=== PATIENT | male | born 1940 | race Caucasian/White ===

== ENCOUNTER 2017-08-03 11:59 | Inpatient (IN) | payer MEDICARE, BC ==
[~2017-08-03] VITALS: Ht 177.8 cm; Wt 79.2 kg
[2017-08-03] MEDS ORDERED: Lidocaine 1% Plain 30 ml INJ ONE (12:15)
[2017-08-03] MEDS ORDERED: Acetaminophen 500mg (ES) tab ORAL ONE (12:15)
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
[2017-08-03 12:43] LABS: BASOPHILS % (AUTO) 2.2 % (0.0-2.0); EOSINOPHILS % (AUTO) 4.6 % (0.0-3.0); HEMATOCRIT 33.2 % (42.0-52.0); HEMOGLOBIN 11.1 G/DL (14.2-18.0); MEAN CORPUSCULAR VOLUME 92 FL (80-99); MONOCYTES % (AUTO) 12.1 % (1.0-10.0); NEUTROPHILS % (AUTO) 49.1 % (45.0-75.0); PLATELET COUNT 248 K/UL (150-450); RED CELL DISTRIBUTION WIDTH 12.5 % (11.6-14.8); WHITE BLOOD COUNT 8.5 K/UL (4.8-10.8)
[2017-08-03 12:58] LABS: ANION GAP 18 mmol/L (5-15); BLOOD UREA NITROGEN 24 mg/dL (7-18); CALCIUM 9.6 MG/DL (8.5-10.1); CARBON DIOXIDE 19 MMOL/L (21-32); CHLORIDE 100 MMOL/L (98-107); CREATININE 1.4 MG/DL (0.55-1.30); POTASSIUM 3.5 MMOL/L (3.5-5.1); SODIUM 137 MMOL/L (136-145)
[2017-08-03 13:03] LABS: ALANINE AMINOTRANSFERASE 16 U/L (12-78); ALBUMIN 3.6 G/DL (3.4-5.0); ALBUMIN/GLOBULIN RATIO 0.8 (1.0-2.7); ALKALINE PHOSPHATASE 53 U/L (46-116); ASPARTATE AMINO TRANSFERASE 19 U/L (15-37); BILIRUBIN,TOTAL 0.4 MG/DL (0.2-1.0)
[2017-08-03 13:40] VITALS: BP 119/63
[2017-08-03 13:49] LABS: INR 0.9 (0.9-1.1)
[2017-08-03 14:27] VITALS: BP 119/80
[2017-08-03] MEDS ORDERED: ceFAZolin 1gm/50ml Premix 50 ML IV ONE (14:30)
[2017-08-03 15:33] VITALS: BP 125/68
[2017-08-03] MEDS ORDERED: Norco 5mg/325mg tab ORAL PRN ×2 (16:15)
[2017-08-03] MEDS ORDERED: ALLOPURINOL100 M1 ORAL (16:22)
[2017-08-03] MEDS ORDERED: OCUVITE EYE +1 EACH PO (16:22)
[2017-08-03] MEDS ORDERED: ZYRTEC10 MG ORAL (16:22)
[2017-08-03] MEDS ORDERED: MOM30 ML ORAL (16:22)
[2017-08-03] MEDS ORDERED: VITAMIN D-32000 UNI2 PO (16:22)
[2017-08-03] MEDS ORDERED: FOLIC ACID1 MG ORAL (16:22)
[2017-08-03] MEDS ORDERED: ACETAMINOPHEN325 M1 ORAL (16:22)
[2017-08-03] MEDS ORDERED: HYDROCHLOROTH12.5 MG ORAL (16:22)
[2017-08-03] MEDS ORDERED: XALATAN2.5 ML BOTH EYES (16:22)
[2017-08-03] MEDS ORDERED: NEURONTIN300 MG ORAL (16:22)
[2017-08-03] MEDS ORDERED: NORVASC10 MG ORAL (16:22)
[2017-08-03] MEDS ORDERED: HYDROCORTISONE20 MG PO (16:22)
[2017-08-03] MEDS ORDERED: MULTIVITAMINS1 EAC2 ORAL (16:22)
[2017-08-03] MEDS ORDERED: Milk of Magnesia 30ml Ud ORAL PRN (16:45)
[2017-08-03] MEDS ORDERED: BRIMONIDINE TART5 ML BOTH EYES (18:51)
[2017-08-03 20:00] VITALS: BP 121/72
[2017-08-03] MEDS: Latanoprost 0.005% Opth 2.5ml Soln BOTH EYES SCH (20:19)
[2017-08-03] MEDS: Brimonidine 0.2% Opth Sol BOTH EYES SCH (20:39)
[2017-08-04] VITALS: BP 136/78
[2017-08-04 04:00] VITALS: BP 121/72
--- NOTE | 2017-08-04 07:42 | Pre-Procedure Note/Attestation ---
Pre-Procedure Note/Attestation Complete Prior to Procedure Planned Procedure: right Procedure Narrative: OPEN REDUCTION INTERNAL FIXATION , RIGHT HALLUX DISTAL PHALANX POSSIBLE RIGHT HALLUX INTERPHALANGEAL JOINT FUSION Indications for Procedure Pre-Operative Diagnosis: OPEN FRACTURE, RIGHT HALLUX, DISTAL PHALANX PERIPHERAL NEUROPATHY, RIGHT LOWER EXTREMITY Attestation I attest that I discussed the nature of the procedure; its benefits; risks and complications; and alternatives (and the risks and benefits of such alternatives ), prior to the procedure, with the patient (or the patient's legal leather goods sales representative). I attest that, if there was a reasonable possibility of needing a blood transfusion, the patient (or the patient's legal leather goods sales representative) was given the [place] Department [employer] standardized written summary, pursuant to the Bert [place] Blood Safety Act ([place] Health and Safety Code # 1645, as amended). I attest that I re-evaluated the patient just prior to the surgery and that there has been no change in the patient's H&P, except as documented below: YAYA NAQVI M.D. August 04, 2017 07:42
--- NOTE | 2017-08-04 07:51 | History & Physical ---
History and Physical History & Physicial right toe fracture/laceration medically healthy denies cardiopulmonary disease PLAN full note to follow medically stable to proceed with local anesthesia and repair Allan Barajas MD August 04, 2017 07:51
[2017-08-04] MEDS ORDERED: Betadine 10% Oint 30gm TOPIC ONE (07:53)
[2017-08-04] MEDS ORDERED: Bupivacaine 0.25% Inj 30ml INJ ONE (07:53)
[2017-08-04] MEDS ORDERED: Lidocaine 1% Plain 30 ml INJ ONE (07:53)
[2017-08-04] MEDS ORDERED: Bacitracin Oint 15gm Tube TOPIC ONE (07:53)
[2017-08-04] MEDS ORDERED: Bacitracin 50000 Units Vial ONE (07:53)
[2017-08-04] MEDS ORDERED: NS Irrig 1000ml IRRIG ONE (08:30)
--- NOTE | 2017-08-04 09:47 | Diagnostic Imaging Report ---
Indication: Reason For Exam: PAIN Technique: Right foot, 3 views Comparison: None. Findings: There is fracture of the first distal phalanx. Laceration appears to be present on the first toe. There is narrowing of the first metatarsal phalangeal joint. Vascular calcification is present. Impression: Fracture of the first distal phalanx with probable soft tissue laceration. Degenerative change of the first metatarsal phalangeal joint. Atherosclerotic change.
--- NOTE | 2017-08-04 09:47 | Operative Note - PDOC ---
Operative Note Operative Note Date of Operation/Procedure: August 04, 2017 Chief Complaint: RIGHT BIG TOE FRACTURE OF DISTAL PHALANX, OPEN Pre-op Diagnosis: OPEN FRACTURE, RIGHT HALLUX, DISTAL PHALANX PERIPHERAL NEUROPATHY, RIGHT LOWER EXTREMITY Procedure: OPEN REDUCTION INTERNAL FIXATION RIGHT HALLUX DISTAL PHALANX LACERATION REPAIR, DEEP, RIGHT HALLUX Post-op Diagnosis: same as pre-op Surgeon: YAYA NAQVI DPM [employer] Access Coordinator: NONE Additional Surgeons: NONE Anesthesiologist: NONE, LOCAL ONLY Anesthesia: local Specimen: none Complications: none Condition: stable Fluids: PER CHART Estimated Blood Loss: minimal - 50CC Drains: none Tourniquet time: 53 Implant(s) used?: No Indications for Procedure OPEN FRACTURE RIGHT HALLUX Description of Procedure SEE OP REPORT DICTATED 08/04/17 935AM YAYA NAQVI M.D. August 04, 2017 09:47
--- NOTE | 2017-08-04 10:16 | Diagnostic Imaging Report ---
Indication: Reason For Exam: PAIN Technique: Intraoperative views of the right third toe, 2 views provided. Fluoroscopy time: 29.4 seconds DAP: 0.91425 mGym2 Comparison: None. Findings: Examination demonstrates pin reduction of a distal phalangeal fracture of the first toe. Impression: Reduction of distal phalangeal fracture of the first toe.
--- NOTE | 2017-08-04 10:18 | Diagnostic Imaging Report ---
Indication: Pain Technique: XRAY Chest 1v Comparison: 01/27/2007. Findings: The patient has taken a poor inspiration. The cardiomediastinal silhouette is normal. The lungs are clear. There is no evidence of pleural fluid. The bony structures are unremarkable. Impression: Poor inspiratory chest. Otherwise grossly negative.
[2017-08-04] MEDS: Latanoprost 0.005% Opth 2.5ml Soln BOTH EYES SCH ×2 (10:19→22:27)
[2017-08-04] MEDS: Allopurinol 100mg Tab ORAL SCH (10:20)
[2017-08-04] MEDS: hydroCHLOROthiazide 12.5mg TAB ORAL SCH (10:20)
[2017-08-04] MEDS: Vitamin D 1000 IU Tab ORAL SCH (10:25)
[2017-08-04] MEDS: Brimonidine 0.2% Opth Sol BOTH EYES SCH ×2 (10:25→18:05)
[2017-08-04 12:00] VITALS: BP 114/70
--- NOTE | 2017-08-04 12:00 | History and Physical Report ---
DATE OF ADMISSION: 08/03/2017 REASON FOR ADMISSION: Toe fracture. HISTORY OF PRESENT ILLNESS: The patient is a 76-year-old male who presented through the emergency room. The patient was brought in by ambulance for laceration of the big toe. The patient apparently stubbed his toe and began bleeding profusely. The patient denies any significant history of cardiopulmonary disease. Denies any history of diabetes. Denies loss of consciousness or syncope. The patient apparently has had some alcohol earlier that day and the patient does have a caregiver. Currently, the patient is comfortable and plans to have open reduction and internal fixation of the fracture. PAST MEDICAL HISTORY: The patient denies all medical problems. The patient, however, does have history of hypertension, does have history of glaucoma, history of hay fever, possible neuropathy, and intermittent dermatitis. FAMILY HISTORY: Otherwise noncontributory to the above. SOCIAL HISTORY: The patient lives with a caregiver. Nonsmoker. Nondrinker. REVIEW OF SYSTEMS: All 10 points reviewed and the patient denies all other complaints. PHYSICAL EXAMINATION: GENERAL: A well-developed male, comfortable. VITAL SIGNS: Pulse 101, blood pressure 136/78, O2 saturations 95% on room air, and temperature 97.5. HEENT: Negative. Oropharynx moist. NECK: Supple. EXTREMITIES: Grossly intact. LUNGS: Fairly clear. Symmetric. No rhonchi or wheezes. CARDIAC: Normal S1, S2. Regular rate and rhythm without audible murmurs, rubs or gallops. ABDOMEN: Soft, nontender, nondistended. EXTREMITIES: No cyanosis, clubbing, or edema. Right foot big toe, the patient has a laceration with some evidence of old bleeding and some deformity noted. LABORATORY AND DIAGNOSTIC DATA: The patient's laboratory data otherwise reviewed. Chest x-ray negative. EKG without any acute changes. X-ray shows the distal phalanx right big toe fracture. Laboratory data reviewed. Hemoglobin 9.1, otherwise CBC negative. Chemistry, BUN 24 and creatinine 1.4. Albumin normal. IMPRESSION: 1. Status post traumatic fracture of right great toe with associated laceration. 2. Evidence of mild metabolic acidosis. 3. Mild renal impairment, possibly chronic renal failure. 4. Mild anemia, possibly due to chronic disease. 5. Evidence of hay fever with mild eosinophilia. 6. Hypertension. RECOMMENDATION: Supportive care. Resume medication. Hold anticoagulation. Proceed with podiatric intervention and monitor postoperatively with plans for discharge to home health. Allan Barajas M.D. DR: MARYILN JOB#: [id number] CC:
--- NOTE | 2017-08-04 15:45 | Operative Note - Dictated ---
DATE OF OPERATION: 08/04/2017 PREOPERATIVE DIAGNOSES: 1. Open fracture of the distal phalanx right hallux. 2. Peripheral neuropathy of the right lower extremity. POSTOPERATIVE DIAGNOSES: 1. Open fracture of the distal phalanx right hallux. 2. Peripheral neuropathy of the right lower extremity. PROCEDURE PERFORMED: Open reduction and internal fixation of the right hallux distal phalanx. ANESTHESIOLOGIST: None. ANESTHESIA: Local with first-ray block with 10 mL of 1:1 mixture of 0.25% Marcaine plain and 1% lidocaine plain. TOURNIQUET TIME: 53 minutes on 250 mmHg, calf tourniquet. SURGEON: Kirit Munoz D.P.M. SIDE GLUER: None. FINDINGS: Complete fracture through the base of the distal phalanx with intact EHL tendon at the insertion of the base of the distal phalanx. DESCRIPTION OF PROCEDURE: The patient was brought to the operating suite and placed in supine position on the operating table. An appropriate time-out was performed identifying the correct patient, procedure, and limb. The right lower extremity was then prepped and draped in the usual sterile fashion. First-ray block was given with a 1:1 mixture of 1% lidocaine pain and 0.25% Marcaine plain. A calf tourniquet was applied prior to the beginning of the case and set up to 250 mmHg for 53 minutes total. I identified the fracture site and we removed some of the hematoma and debrided the bony edges with a Dermal Curette. I searched for any bony debris and a few small bone spicules were identified along the plantar medial aspect and were excised using Dermal Curette. This area was then washed out. I then washed out the wound and the fracture site with one liter of normal saline. At this time, I directed to 0.0045 K-wire in the usual sterile fashion from the distal tip. Prior to this, a stab incision was made at the distal tip of the right hallux. I then used a C-arm to identify that the fracture was adequately reduced through the fracture site and through the hallux IPJ. Once this was performed, the fracture site was again washed out with normal saline and once we got adequate AP and lateral views, I then sutured the subcutaneous tissue with 4-0 Vicryl suture in simple interrupted fashion. I then closed skin using 4-0 Prolene in horizontal and simple fashion. I then applied a Xeroform pin cap on the K-wire and dressed it with 4 x 4 Kerlix and Rasta. This was the completion of the case. DISPOSITION: The patient tolerated local anesthesia and procedure well without any complications. He was transferred back to his room immediately from the operative suite with vital signs stable and vascular status intact. The right foot was noted by immediately hyperemia of digits 1 to 5 upon completion of the case. I will order physical therapy for gait training using a front-wheel walker. We have placed him in a surgical shoe at this time. I advocate wearing this postoperative shoe at all times, even in bed to prevent any catching of the K-wire. I discussed with the patient it is okay for him walk on the heel, so he will be partial protective weightbearing using a front-wheel walker. Once his pain is controlled and he is tolerating the diet, I will have his admitting physician release him home. Outer , which include 4x4 Kerlix and Coban should be changed on 08/07/2017. However, I advocate for the patient to leave the Xeroform intact. He will follow up with me in clinic in one week. Kirit Munoz M.D. DR: BRITTON JOB#: [id number] CC:
[2017-08-04 16:00] VITALS: BP 110/69
[2017-08-04 20:00] VITALS: BP 126/71
[2017-08-05] VITALS: BP 108/63
[2017-08-05 04:00] VITALS: BP 109/60
[2017-08-05 08:00] VITALS: BP 120/69
--- NOTE | 2017-08-05 09:15 | Consultation ---
DATE OF CONSULTATION: 08/03/2017 TIME: 3:30 p.m. due to the neuropathy and plantar flexed he does not remember if he . He does remember that it felt like a carpet. He was taken to the ER at [facility]. They washed up the wound and . After prescription has gone to brain picker the medications. He is not in any pain. Denies any constitutional symptoms. PAST MEDICAL HISTORY: The patient has high blood pressure, gout, heart disease, and gastrointestinal disorders. PAST SURGICAL HISTORY: Tonsillectomy. MEDICATIONS: See the list. PHYSICAL EXAMINATION: VITAL SIGNS: Most recent vitals are temperature 96.6, pulse 77, respiratory rate 20, blood pressure 125/68, and O2 99% on room air. On exam, . The patient denies sensation to the medial and lateral aspects. malodor. There is about 50% laceration, which is still open. There is no horizontal fracture line at the distal the right hallux with a small fracture fragment that goes into the level of the hallux IPJ. LABORATORY DATA: White count 8.5, hemoglobin 11.1, hematocrit 33.2, and platelet count 248,000. ASSESSMENT: 1. Open fracture, right distal phalanx. 2. Peripheral neuropathy of the lower extremity. PLAN: Discussed all risks, benefits, and potential complications of the surgery with a proposed fusion of the hallux IPJ, right big toe physical therapy for nonweightbearing . Kirit Munoz M.D. DR: ZACHARY JOB#: [id number] CC:
[2017-08-05] MEDS: Brimonidine 0.2% Opth Sol BOTH EYES SCH ×2 (10:06→17:20)
[2017-08-05] MEDS: Vitamin D 1000 IU Tab ORAL SCH (10:07)
[2017-08-05] MEDS: hydroCHLOROthiazide 12.5mg TAB ORAL SCH (10:07)
[2017-08-05] MEDS: Allopurinol 100mg Tab ORAL SCH (10:07)
--- NOTE | 2017-08-05 10:13 | General Progress Note ---
Assessment/Plan Assessment/Plan IMPRESSION: 1. Status post traumatic fracture of right great toe with associated laceration. s/p ORIF 2. Evidence of mild metabolic acidosis. 3. Mild renal impairment, possibly chronic renal failure. 4. Mild anemia, possibly due to chronic disease. 5. Evidence of hay fever with mild eosinophilia. 6. Hypertension. PLAN pain rx home health resume meds follow up with podiatry stable for discharge Subjective Allergies: Coded Allergies: No Known Allergies (Verified , 01/28/07) Subjective care noted has some pain D/W podiatry- cleared Objective Last 24 Hour Vital Signs Date Time Temp Pulse Resp B/P (MAP) Pulse Ox O2 Delivery O2 Flow Rate FiO2 08/05/17 04:00 97.2 86 20 109/60 96 Room Air 97.2 08/05/17 04:00 80 08/05/17 00:00 78 08/05/17 00:00 97.5 80 20 108/63 91 Room Air 97.5 08/04/17 20:00 88 08/04/17 20:00 99.2 92 20 126/71 98 Room Air 99.2 08/04/17 16:00 93 08/04/17 16:00 98.3 89 18 110/69 97 Room Air 98.3 08/04/17 12:00 98.7 88 22 114/70 94 Room Air 98.7 08/04/17 12:00 86 08/04/17 10:20 87 121/74 Intake and Output 08/04/17 08/05/17 19:00 07:00 Intake Total 450 ml 150 ml Output Total 300 ml 250 ml Balance 150 ml -100 ml Intake Oral 450 ml 150 ml Output Urine Total 300 ml 250 ml # Voids 5 Height (Feet): 5 Height (Inches): 10.00 Weight (Pounds): 174 Objective GENERAL: A well-developed male, comfortable. HEENT: Negative. Oropharynx moist. NECK: Supple. EXTREMITIES: Grossly intact. LUNGS: Fairly clear. Symmetric. No rhonchi or wheezes. CARDIAC: Normal S1, S2. Regular rate and rhythm without audible murmurs, rubs or gallops. ABDOMEN: Soft, nontender, nondistended. EXTREMITIES: No cyanosis, clubbing, or edema. Right foot in boot Allan Barajas MD August 05, 2017 10:13
[2017-08-05 12:00] VITALS: BP 109/70
[2017-08-05] MEDS ORDERED: NORCO 5-325 TA1 EACH ORAL ×2 (14:13→14:14)
[2017-08-05] MEDS ORDERED: Tubing IV Secondary IV ONE (15:14)
[2017-08-05 16:00] VITALS: BP 116/69
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
== END 2017-08-05 17:37 | disposition home health service (06) | DRG 504 ==
LOC: EDBD 11:59 → EMR 12:32 → 2E 13:27 → EDBEDREQ 13:58
PROC: 0QSQ04Z Reposition Right Toe Phalanx with Internal Fixation Device, Open Approach (ICD-10-PCS; principal; 2017-08-04 08:00)
DX: S92.421B Displaced fracture of distal phalanx of right great toe, initial encounter for open fracture (principal); E87.2 Acidosis; X58.XXXA Exposure to other specified factors, initial encounter; Y92.009 Unspecified place in unspecified non-institutional (private) residence as the place of occurrence of the external cause; G62.9 Polyneuropathy, unspecified; H40.9 Unspecified glaucoma; I12.9 Hypertensive chronic kidney disease with stage 1 through stage 4 chronic kidney disease, or unspecified chronic kidney disease; N18.9 Chronic kidney disease, unspecified; D63.8 Anemia in other chronic diseases classified elsewhere; F10.10 Alcohol abuse, uncomplicated
CPT/HCPCS: 36415; 71045; 76000; 80053; 80329; 85025; 85610; 85730; 86850; 86900; 86901; 87040; 87081; 93005; 99285